=== PATIENT | female | born 1970 | race Caucasian/White ===

== ENCOUNTER → 2016-10-18 | Outpatient (CLI) | payer BC ==
[~2016-10-18] MED LIST: BACLOFEN 10MG T10 MG PO; BACTRIM DS 8001 TAB PO; BIAXIN 500MG T500 MG PO; GRALISE600 MG PO; HYDROCODONE-HOMATROP PO; INDERAL 80MG. T80 MG OR; KEFLEX500 M1 PO; LORTAB 5/500 501 TAB PO; MEDROL 4MG. DOSE4 MG PO; PHENAZOPYRIDIN200 M3 PO; PREDNISONE 20MG20 MG PO; TESSALON PERLE200 MG PO; ZITHROMAX Z-PA250 M1 PO
[2016-10-18 08:56] LABS: HEMOGLOBIN 14.9 g/dL (12.2-16.2); LYMPH # 2.6 K/mm3 (0.7-4.5); LYMPH % 26.6 % (10-50.0)
[2016-10-18 10:03] LABS: BUN 11 mg/dL (7-18)
[2016-10-18 10:23] LABS: GFR (ESTIMATED) 90 ML/MIN (59-)
[2016-10-19 08:36] LABS: Vitamin B12 319 pg/mL (211-946)
[2016-10-19 16:35] LABS: HBsAg Screen Negative (Negative); Hep A Ab, IgM Negative (Negative); Hep B Core Ab, IgM Negative (Negative); Hep C Virus Ab 0.1 (0.0-0.9)
[2016-10-24 03:37] LABS: 1,25-Dihydroxy, Vitamin D-2 <10 pg/mL (.); 1,25-Dihydroxy, Vitamin D-3 23 pg/mL (.); Total 1,25-Dihydroxy,Vitamin D 24 pg/mL (.)
== END ==
LOC: LAB 08:29
PROVIDERS: Nurse Practitioner Family
DX: Z00.00 Encounter for general adult medical examination without abnormal findings (principal)